=== PATIENT | male | born 1955 | race Caucasian/White ===

== ENCOUNTER 2019-10-07 12:37 | Emergency (ER) | payer BC ==
[2019-10-07] MEDS ORDERED: Lidocaine 2% PF 5 ML VIAL ONE (12:48)
[2019-10-07] MEDS ORDERED: Adacel (T-DAP) 0.5 ML SYRINGE ONE (12:48)
[2019-10-07] MEDS ORDERED: Bacitracin 1 PK ONE (12:48)
[2019-10-07] MEDS ORDERED: Amoxicillin/Potassium Clav 875 MG TAB ONE (13:12)
== END 2019-10-07 13:14 | disposition home or self-care (01) ==
LOC: BURERS 12:37
DX: S61.412A Laceration without foreign body of left hand, initial encounter (principal); W26.8XXA Contact with other sharp object(s), not elsewhere classified, initial encounter; Y92.009 Unspecified place in unspecified non-institutional (private) residence as the place of occurrence of the external cause; Z23 Encounter for immunization
CPT/HCPCS: 12001; 90471; 90715; J2001